=== PATIENT | male | born 1950 | race Caucasian/White ===

== ENCOUNTER 2022-11-04 11:27 | Emergency (ER) | payer OTHER, SELFPAY ==
[2022-11-04 11:33] VITALS: PULSE 67; RESP 38
[2022-11-04 11:34] VITALS: BP 135/61; PULSE 62; RESP 22; O2SAT 99
[2022-11-04 11:35] VITALS: BP 134/61; PULSE 60; RESP 24; O2SAT 99
--- NOTE | 2022-11-04 11:36 | DI.RAD.S_ITS ---
PROCEDURE: XR CHEST 1V INDICATIONS: chest pain TECHNIQUE: One view of the chest was acquired. COMPARISON: None. FINDINGS: Surgical changes and devices: Left chest wall pacemaker leads are in the region of right atrium and right ventricle. Median sternotomy wires and surgical clips are seen. Prosthetic aortic valve is also noted. Lungs and pleura: There is small to moderate left pleural effusion with left basilar atelectasis. No definite focal infiltrate. No pneumothorax. Mediastinum: Mediastinal contours appear normal. Heart size is enlarged. Bones and chest wall: No suspicious bony lesions. Overlying soft tissues appear unremarkable. IMPRESSION: Small to moderate left-sided pleural effusion and left basilar atelectasis. No definite focal infiltrate or pneumothorax. Dictated by: Gerber Feliz M.D. on 11/04/2022 at 11:56 Approved by: Gerber Feliz M.D. on 11/04/2022 at 11:56
[2022-11-04 11:40] VITALS: BP 135/58; PULSE 60; RESP 22; O2SAT 100
--- NOTE | 2022-11-04 11:40 | ED_ITS ---
HPI - Chest Pain General Chief Complaint: Chest Pain Stated Complaint: Sent over from DR. Muñiz Seen by Provider: 11/04/22 11:40 Source: patient Mode of arrival: Ambulatory Limitations: no limitations Limitations: no limitations History of Present Illness HPI narrative: Patient is a 72-year-old male with a history of CAD, status post CABG. He is CKD stage IIIA, status post TAVR, hypertension, PAF, and pacemaker. He is anticoagulated with Pradaxa. He was at a routine cardiac appointment with [facility] this morning. A routine EKG was done, indicating ST elevation in inferior leads. On his prior EKGs he has ST inversions in the anterior and septal leads. The depression has increased. Patient was not having chest pain, or dyspnea. He was having dizziness, but no palpitations. He denies URI symptoms, cough, or weakness. He denies peripheral edema. The nurse practitioner who was seen him with Cardiology contacted me to send him over, he arrives by wheelchair. He is a good historian in no distress upon arrival. Review of Systems Review of Systems ROS Unobtainable: All systems reviewed & are unremarkable except as noted in HPI and below Constitutional Constitutional: Reports as per HPI, Denies chills, Reports fatigue, Denies fever(s) and Denies headache(s) Eyes Eyes: Denies change in vision and Denies irritation ENT Ears, Nose, Mouth, and Throat: Denies headache(s) and Denies sore throat Cardiovascular Cardiovascular: Denies chest pain, Denies chest pain at rest, Denies irregular heart rhythm, Denies leg ulcers, Denies leg edema, Reports lightheadedness and Denies dyspnea Respiratory Respiratory: Denies cough and Denies dyspnea Gastrointestinal Gastrointestinal: Denies abdominal pain, Denies melena, Denies nausea and Denies vomiting Genitourinary Genitourinary: Denies dysuria Musculoskeletal Musculoskeletal: Denies back pain Integumentary/Breasts Skin/Breast: Reports system reviewed and no additional complaints, except as documented Neurologic Neurologic: Reports system reviewed and no additional complaints, except as documented, Denies confusion and Denies headache(s) Psychiatric Psychiatric: Denies confusion and Denies depression Endocrine Endocrine: Reports fatigue Hematologic/Lymphatic On Anticoagulants: Yes Allergic/Immunologic Allergic/Immunologic: Reports system reviewed and no additional complaints, except as documented Patient History Medical History (Updated 11/04/22 @ 13:44 by Mikael Richards MD) Anemia CAD (coronary artery disease) of artery bypass graft History of transcatheter aortic valve replacement (TAVR) HTN (hypertension) Pacemaker Prostate CA Surgical History Hx of CABG Social History Smoking Status: Never smoker Exam Const General: cooperative, comfortable, well groomed and No acute distress HENTN Head: normal to inspection, normocephalic and atraumatic Face and sinus: normal facial exam Mouth: oral mucosae normal Throat: posterior oropharynx normal Eyes General: Yes appearance normal, both eyes and all related structures Neck Neck: normal visual inspection and No JVD Chest Chest: normal inspection of the chest Resp Effort & Inspection: normal respiratory effort Auscultation: clear to auscultation bilaterally Cardio Rate: regular rate Rhythm: regular rhythm Heart Sounds: S1 normal, S2 normal and no murmurs GI Inspection: normal to inspection Palpation: soft Auscultation: normal bowel sounds Back/Spine/Pelvis Back: normal to inspection and No back tenderness Skin General: no rashes or lesions noted Neuro General: patient alert, patient awake and patient oriented x3 Extrem General: normal to inspection, no pedal edema and no calf tenderness Course Course Course Narrative: Patient presents with dizziness, no chest pain and no dyspnea, but EKG indicating inferior AR. a repeat EKG was not as obvious. Nonetheless, Code Catheterization was called. I contacted Dr. Rogel the ER doctor [facility]. He is agreed to accept the patient. Aspirin was given. Patient is taking Pradaxa, he is indicating a recent diagnosis of anemia. I am concerned about GI bleeding. I avoided further anticoagulation awaiting labs prior to departure for [facility]. His H&H is stable, his PTT is notably elevated. Troponin is normal. He is transferred to [facility] for ongoing cardiac evaluation, he is stable at the time of transfer. Lab data was obtained after the patient's departure, the information was forwarded to [facility]. Orders Ordered: ED Orders 11/04/22 11:36 XR chest 1V Stat Complete Blood Count AUTO DIFF Stat Comprehensive Metabolic Panel Stat Lipase Stat Magnesium Stat PTT Partial Thromboplastin Declan Stat Prothrombin Time INR Stat Troponin & CK Cardiac Panel Stat EKG-12 Lead Stat Discontinued Medications Aspirin (Aspirin 81 Mg Chew Tab) 324 mg PO NOW ONE Stop: 11/04/22 11:37 MDM - Chest Pain Imaging Data Chest x-ray: My Impression: TECHNIQUE:? One view of the chest was acquired.? ? COMPARISON:? None. ? FINDINGS:? ? Surgical changes and devices:? Left chest wall pacemaker leads are in the region of right atrium and right ventricle.? Median sternotomy wires and surgical clips are seen.? Prosthetic aortic valve is also noted. ? Lungs and pleura:? There is small to moderate left pleural effusion with left basilar atelectasis.? No definite focal infiltrate.? No pneumothorax. ? Mediastinum:? Mediastinal contours appear normal.? Heart size is enlarged.? ? Bones and chest wall:? No suspicious bony lesions.? Overlying soft tissues appear unremarkable.? ? ? IMPRESSION:? Small to moderate left-sided pleural effusion and left basilar atelectasis.? No definite focal infiltrate or pneumothorax.? ? Radiologist's Impression: Small to moderate left-sided pleural effusion and left basilar atelectasis.? No definite focal infiltrate or pneumothorax.? ? ECG Data Attestation: I personally reviewed and interpreted this ECG as follows: (EKG 1. From clinic: Paced rhythm rate [address] elevation leads [address] depression leads V2, V3, V4 and V5. EKG 2. Taken in the ER: Paced rhythm rate 60 beats per minute. Suggestion of ST elevation in lead II. Severe ST depression V2, V3 and V4. ) Critical Care Time Critical Care Time Critical Care Time: Yes Total Critical Care Time: 22 Attestation: Time included interview and evaluation the patient, review of medical records, review of EKG, x-ray and lab data. The situation was reviewed with the patient, and discussed with the accepting physician. Discharge Plan Departure Patient Disposition: [facility] Clinical Impression: Acute ST elevation myocardial infarction (STEMI) of inferior wall Referrals: Sidney Dunn MD [Primary Care Provider] -
[2022-11-04] MEDS: ASPIRIN 81 MG CHEW TAB 324 MG PO (11:42)
[2022-11-04 11:43] LABS: Add Manual Diff / Slide Review NO; Basophils Absolute Auto 0 /uL (0-100); Basophils Percent Auto 0.4 % (0-2); Eosinophils Absolute Auto 100 /uL (0-450); Eosinophils Percent Auto 0.7 % (2-4); Hemoglobin 11.2 g/dL (13.5-17.5); Lymphocytes Absolute Auto 400 /uL (1100-4500); Lymphocytes Percent Auto 4.7 % (25-40); Mean Corpuscular HGB Conc 33.9 % (30-36); Mean Corpuscular Hemoglobin 33.3 PG (26-34); Mean Corpuscular Volume 98.4 fL (80-100); Monocytes Absolute Auto 400 /uL (0-900); Monocytes Percent Auto 5.4 % (3-14); Neutrophils Absolute Auto 6800 /uL (1500-7000); Neutrophils Percent Auto 88.8 % (50-75); Platelet Count 137 X10^3/uL (150-400); Red Blood Cell Count 3.36 X10^6/uL (4.5-5.9); Red Cell Distribution Width 13.9 % (11.6-14.8); White Blood Cell Count 7.7 X10^3/uL (4.5-11.0)
[2022-11-04 11:46] VITALS: BP 135/58; PULSE 60; RESP 16; TEMP 36.4; O2SAT 100; BMI 29.0
[2022-11-04 11:50] VITALS: BP 116/55; PULSE 60; RESP 20; O2SAT 98
[2022-11-04 11:50] LABS: INR 2.2 (0.9-1.3); Prothrombin Time 25.4 SECONDS (10.1-12.7)
[2022-11-04 11:55] LABS: Alanine Aminotransferase 16 IU/L (<50); Albumin 4.1 g/dL (3.5-5.0); Albumin Globulin Ratio 1.2 (1.0-2.8); Alkaline Phosphatase 90 U/L (38-126); Aspartate Aminotransferase 23 IU/L (17-59); BUN Creatinine Ratio 15.7 (6-22); Bilirubin Total 0.5 mg/dL (0.2-1.3); Blood Urea Nitrogen 44 mg/dL (9-20); Calcium 9.6 mg/dL (8.4-10.2); Carbon Dioxide 17 mmol/L (22-32); Chloride 111 mmol/L (98-107); Creatine Kinase 34 U/L (55-170); Estimated Glomerular Filt Rate 23 mL/min (>60); Globulin 3.5 g/dL (1.7-4.1); Glucose 112 mg/dL (80-110); HEMOLYSIS < 15 (0-50); Lipase 309 U/L (23-300); Potassium 4.9 mmol/L (3.4-5.1); Sodium 137 mmol/L (137-145); Total Protein 7.6 g/dL (6.3-8.2)
--- NOTE | 2022-11-04 11:59 | PC.NURSE ---
Call ahead was provided by cardio office and transferred to Dr Richards. Pt having a follow up at the office today for persistent dizziness after a change in his Prostate CA medication. Pt with h/o CABG x4, TAVR, pacemaker, and HTN. EKG from cardio office was faxed to ED showing ST elevation in II, III, AVF with reciprocal changes in I, AVL. Dr Richards requested the office call 911 for stat transfer to [facility] for STEMI activation. Pt arrived POV to ED from cardiology office. Pt immeadiately triaged to 2 and 911 called for STEMI activation. EKG obtained. Placed on cardiac monitoring. 2 large bore IVs placed with blood draw. Pt states he takes Pradaxa and appears pale. Heparin infusion held. Pt given 324 ASA and tolerated well. [facility] accepted and EMTALA paperwork completed. Pt transferred to [facility] stat with AFD. Report given to EMS.
[2022-11-04 12:03] LABS: PTT Partial Thromboplastin Tim 92 SECONDS (26-36)
[2022-11-04 12:06] LABS: Troponin I 0.013 ng/mL (0.01-0.034)
--- NOTE | 2022-11-04 12:08 | PC.NURSE ---
Critical value report of PTT 92. Dr Richards aware. Pt already departed ED.
== END 2022-11-04 12:06 | disposition short-term general hospital (02) ==
PROVIDERS: Emergency Provider Emergency Medicine; PCP Internal Medicine Cardiovascular Disease
DX: I21.19 ST elevation (STEMI) myocardial infarction involving other coronary artery of inferior wall (principal); Z95.0 Presence of cardiac pacemaker; Z79.01 Long term (current) use of anticoagulants
CPT/HCPCS: 36415; 71045; 80053; 82550; 83690; 83735; 84484; 85025; 85610; 85730; 93005; 93010; 99284; 99285; 99291